=== PATIENT | female | born 1955 | race Caucasian/White ===

== ENCOUNTER → 2017-01-21 | Outpatient (CLI) | payer BC ==
[~2017-01-21] MED LIST: ACETAMINOPHEN650 M3 PO; AMITRIPTYLINE H75 MG PO; CITRUCEL500 MG PO; ESTRATEST TABLE1 TAB PO; FISH OIL + VIT1 EACH PO; GNP B-COMPLEX1 EACH PO; LEVAQUIN PO; MAXILIFE RICE 51 CAP PO; MEDROXYPROGEST2.5 M1 PO; MULTIVITAMIN1 UDCAP PO; PAXIL CR PO; PROVERA PO; XANAX0.5 MG PO; [UNRECOGNIZED DRUG - OTHER] PO
--- NOTE | ~2017-01-21 | MY29 ---
[facility] A Service of [facility] RADIOLOGY TEXT RESULTS PATIENT: KATARINA CASTANEDA LOCATION: [facility] : 59 UNIT #: [id number] AGE: [address]: Mao Eckert MD SEX: F ORDER DR: [id number] [facility] [address] [place], [place] [address] [id number] O MR#: [id number] Acc #: [id number] NAME: KATARINA CASTANEDA. : 1955 SEX: F STUDY DATE/TIME: 01/21/2017 10:16 UNIT: [facility] ROOM: STUDY DESCRIPTION: MY YA SCREENING W/ CAD BILAT Attending Physician: Mao Eckert M.D. Ordering Physician: Mao Eckert M.D. Primary Care Physician: Jeff David M.D. MEDICAL IMAGING REPORT This report is preliminary unless electronic signature is present EXAM Bilateral digital screening with CAD HISTORY Routine screening. No current complaints. Family history of breast cancer in sister. COMPARISON 12/27/2015 10/25/2014. FINDINGS MLO and CC digital views of each breast were obtained and reviewed with an FDA-approved CAD device. The breasts are heterogenously dense. There are no masses or abnormal calcifications. There has been no change. IMPRESSION No change no evidence of malignancy. Patients over the age of 40 are entered into a reminder system with target due date for the next mammogram. A result letter will also be sent to the patient. BIRADS: 1, negative. Dictated by... Bob Chowdhury M.D. THIS IS AN ELECTRONICALLY VERIFIED REPORT Bob Chowdhury M.D. at 01/21/2017 3:56 PM PADDY/charlesr TD: 01/21/2017 15:14 [facility] A Service of [facility] RADIOLOGY TEXT RESULTS PATIENT: KATARINA CASTANEDA [id number] : 59 UNIT #: [id number] AGE: [address]: Mao Eckert MD SEX: F ORDER DR: JOB #: [id number] MEDICAL IMAGING REPORT Page 1 of 1 COPY
== END | disposition home or self-care (01) ==
LOC: CWCC 01-10 11:30
DX: Z12.31 Encounter for screening mammogram for malignant neoplasm of breast (principal); Z80.3 Family history of malignant neoplasm of breast
CPT/HCPCS: G0202